=== PATIENT | male | born 1970 | race Caucasian/White ===

== ENCOUNTER 2017-11-30 14:14 | Emergency (ER) | payer MEDICAID ==
[~2017-11-30] VITALS: Ht 182.9 cm; Wt 97.1 kg
[2017-11-30 14:27] VITALS: Ht 182.9 cm; Wt 97.1 kg
[2017-11-30 15:46] LABS: BASOPHIL % 0.4 % (0-2); PLATELET COUNT 132 x10^3mcL (130-400); RED CELL DISTRIBUTION WIDTH 14.1 % (11.5-14.5)
[2017-11-30 17:29] VITALS: BP 150/98
== END 2017-11-30 17:29 | disposition home or self-care (01) ==
LOC: ED 14:14
PROVIDERS: Emergency Medicine Emergency Medical Services
DX: L03.116 Cellulitis of left lower limb (principal)
CPT/HCPCS: 36415; 90715; Q0092